=== PATIENT | female | born 1990 | race Caucasian/White ===

== ENCOUNTER 2020-07-31 17:18 | Inpatient (IN) ==
[2020-07-31] MEDS ORDERED: PENICILLIN G POTASSIUM 3 MU in DEXTROSE 5% 100 ML IV PRN (17:56)
[2020-07-31] MEDS ORDERED: MAG SULFATE BOLUS FROM BAG 4 GM IV ONE (18:03)
[2020-07-31] MEDS ORDERED: PENICILLIN G POTASSIUM 6 MU in DEXTROSE 5% 250 ML IV STA (18:05)
[2020-07-31] MEDS: LACTATED RINGER'S 1,000 ML IV PRN (18:11)
[2020-07-31] MEDS ORDERED: MAGNESIUM SULFATE / WTR 40 GM/1,000 ML BAG IV SCH (18:15)
[2020-07-31] MEDS ORDERED: BETAMETH SOD PHOS/ACETATE IA 6 MG/ML IM SCH (18:15)
[2020-07-31 18:18] LABS: Basophils # (auto) 0.02 K/uL (0-0.2); Basophils % (auto) 0.1 %; Eosinophils # (auto) 0.15 K/uL (0-0.5); Eosinophils % (auto) 0.9 %; Hematocrit (blood only) 32.7 % (37-47); Hemoglobin 11.1 g/dL (12.0-16.0); Immature Granulocytes # (auto) 0.23 K/uL (0.00-0.02); Immature Granulocytes % (auto) 1.4 %; Lymphocytes # (auto) 2.44 K/uL (1.2-3.4); Lymphocytes % (auto) 15.2 %; Mean Corpuscular Volume 88.4 fL (80-100); Monocytes # (auto) 1.62 K/uL (0.11-0.59); Monocytes % (auto) 10.1 %; Neutrophils # (auto) 11.58 K/uL (1.4-6.5); Neutrophils % (auto) 72.3 %; Platelet Count 262 K/uL (130-400); RDW Coefficient of Variation 13.8 % (11.5-14.5); White Blood Count 16.04 K/uL (4.8-10.8)
--- NOTE | 2020-07-31 18:28 | History & Physical Report ---
Date of Service July 31, 2020 Assessment & Plan (1) labor: Reviewed with patient that she is in labor and given gestational age, would recommend transfer to [facility]. Spoke with Dr. Scar Pradhan, [facility] who accepted the transfer. Betamethasone, penicillin, magnesium for neuro protection were initiated. Response benefits of transfer were discussed with patient she is amenable. History of Present Illness Chief Complaint: Pelvic pain, pressure Primary Care Provider: Zuleika Slaughter, DO 29 y/o at 24 5/7 wga w/ [facility] 11/15/20 by LMP 02/08 c/w 1st [facility] who presents w/ c/o pelvic pain that began after losing mucous plug earlier this afternoon. Pt was seen 3 days ago w/ c/o spotting with wiping, decreased FM and pressure. Was found to be stable for d/c home after exam. Today was resting, no longer having any spotting, but subsequently began having pelvic pain every 10 min after losing mucous plug and increased pressure and presented for evaluation. +FM; denies LOF. Noticed more pink tinge after losing mucous plug but no bleeding PNI: Di-di TIUP FGR baby B on [place] anatomy US, [facility] c/s noted AGA x 2 Hx PTD at 21 wks in 2009, subsequent full term deliveries GDM Hx HSIL Past [employer] Hx: G1 2009 at 21 wks, PTL, demise G2 2010 SAB G3 2011 at 38 wks G4 2015 at 37 wks G5 SAB G6 current Menarche 13 Periods irregular Last pap 03/2020 neg cotest, hx HSIL 2019 Denies hx STIs Allergies Allergy/AdvReac Type Severity Reaction Status Date / Time No Known Drug Allergies Allergy Unknown Verified 07/29/20 11:38 Home Medications Medication Instructions Recorded Confirmed Type prenat.vits,simi,sgi-jlrw-[id number] 1 tab PO DAILY 04/02/20 07/29/20 History acetone (urine) test #50 ea 07/01/20 07/29/20 Rx blood sugar diagnostic #150 ea 07/01/20 07/29/20 Rx blood-glucose meter #1 ea 07/01/20 07/29/20 Rx lancets 33 gauge #150 ea 07/01/20 07/29/20 Rx aspirin 81 mg PO DAILY 07/28/20 07/29/20 History Patient History Medical History (Updated 07/31/20 @ 19:41 by Tracie Padron MD) Depression H/O chlamydia infection History of oligohydramnios History of threatened premature labor Hx of high risk depression Surgical History No pertinent past surgical history Family History Grandmother (Maternal) Breast cancer Other Diabetes Family history non-contributory Thyroid disorder Denies family history of Ovarian cancer Colorectal cancer Social History Smoking Status: Never smoker Hx Alcohol Use: No Hx Substance Use: No Preferred Language: Croatian Beliefs That Will Affect Care: None marital status: Single marital status details: lindsay Sanchez (28) [phone] Current Living Situation: Family and Significant Other Current Living Situation Comment: lives with lindsay, 2 children, dog current occupational status: unemployed Other Information That Helps Us Care for You: No Feels Safe at Home: Yes Safety Concerns: Feels Safe At This Time Assistive Devices: None Physical Exam Constitutional: WD/WN, vitals as above Respiratory: normal respiratory effort; no respiratory distress and no labored breathing Psychiatric: A+Ox3, euthymic affect Genitourinary: normal external appearance SSE membranes visualized on exam, does appear to be ~3-4cm visualized Digital SVE ~3-4cm however is very thin BSUS cephalic (L)/transverse Head maternal L (R) Results & Data ([facility]) Vital Signs (Past 12 Hours) Vital Signs Temp Pulse Resp BP Pulse Ox 07/31/20 18:12 127 H 98 07/31/20 18:07 123 H 97 07/31/20 18:02 123 H 95 07/31/20 17:57 124 H 95 07/31/20 17:53 98.8 F 117 H 22 93 07/31/20 17:52 117 H 93 07/31/20 17:47 131 H 92 07/31/20 17:45 132 H 94 07/31/20 17:42 141 H 96 07/31/20 17:39 125 H 94 07/31/20 17:37 138 H 97 07/31/20 17:32 127 H 96 07/31/20 17:25 98.8 F 134 H 22 113/72 Laboratory Results OB Labs: Blood Type O Positive 04/09/20 Antibody Screen NEGATIVE 04/09/20 Hemoglobin 13.9 g/dL (12.0-16.0) 04/09/20 Hematocrit 40.4 % (37-47) 04/09/20 Mean Corpuscular Volume 86.9 fL (80-100) 04/09/20 Platelet Count 347 K/uL (130-400) 04/09/20 Rubella IgG Antibody Immune (Immune) 04/09/20 Rapid Plasma Reagin Nonreactive (Nonreactive) 04/09/20 Hepatitis B Surface Antigen Neg (Neg) 04/09/20 HIV (1&2) Ab and P24 Ag, 4th Gener Neg (Neg) 04/09/20 OB Optional Labs: Chlamydia trachomatis RNA NOT DETECTED (NOT DETECTED) 04/09/20 Neisseria gonorrhoeae RNA NOT DETECTED (NOT DETECTED) 04/09/20 cfDNA low risk Code Status & VTE Plan VTE Prophylaxis Plan VTE Prophylaxis will be ordered: Yes Coding Level of Care Code None Diagnoses labor O60.00
[2020-07-31 18:47] LABS: Mean Corpuscular Hgb Conc 33.9 g/dL (32-36)
[2020-07-31] MEDS ORDERED: OXYTOCIN 30 UNITS/500 ML BAG IV PRN (19:32)
[2020-07-31] MEDS ORDERED: LACTATED RINGER'S 1,000 ML IV PRN (19:32)
[2020-07-31] MEDS ORDERED: SODIUM CHLORIDE 0.9% 250 ML IV PRN (19:40)
[2020-07-31] MEDS ORDERED: AZITHROMYCIN 500 MG in DEXTROSE 5% 250 ML IV ONE (19:45)
[2020-07-31] MEDS ORDERED: CITRIC ACID/SODIUM CITRATE 15 ML UDC PO SCH (19:45)
--- NOTE | 2020-07-31 19:45 | Labor Progress Brief Note ---
Date of Service July 31, 2020 Subjective Pt notes ctx are worsening Assessment & Plan Admission and Anticipated Discharge Date Admission Date: July 31, 2020 Results & Data ([facility]) Vital Signs (Past 12 Hours) Vital Signs Temp Pulse Resp BP Pulse Ox 07/31/20 19:42 138 H 97 07/31/20 19:41 137 H 127/59 L 07/31/20 19:37 139 H 97 07/31/20 19:32 137 H 96 07/31/20 19:27 144 H 95 07/31/20 19:26 134 H 138/81 07/31/20 19:22 134 H 96 07/31/20 19:17 137 H 98 07/31/20 19:12 137 H 96 07/31/20 19:11 133 H 127/76 07/31/20 19:07 128 H 95 07/31/20 19:02 128 H 96 07/31/20 18:57 132 H 111/75 96 07/31/20 18:52 137 H 96 07/31/20 18:47 136 H 97 07/31/20 18:42 129 H 127/59 L 95 07/31/20 18:37 129 H 97 07/31/20 18:32 125 H 94 07/31/20 18:28 129 H 126/59 L 07/31/20 18:27 129 H 96 07/31/20 18:26 126 H 125/60 07/31/20 18:22 121 H 98 07/31/20 18:17 126 H 96 07/31/20 18:12 127 H 98 07/31/20 18:07 123 H 97 07/31/20 18:02 123 H 95 07/31/20 17:57 124 H 95 07/31/20 17:53 98.8 F 117 H 22 93 07/31/20 17:52 117 H 93 07/31/20 17:47 131 H 92 07/31/20 17:45 132 H 94 07/31/20 17:42 141 H 96 07/31/20 17:39 125 H 94 07/31/20 17:37 138 H 97 07/31/20 17:32 127 H 96 07/31/20 17:25 98.8 F 134 H 22 113/72 Coding
--- NOTE | 2020-07-31 19:48 | Labor Progress Brief Note ---
Date of Service July 31, 2020 Subjective This is delayed entry due to pt care. Pt noting worsening ctx intensity and frequency Assessment & Plan (1) labor: Given progression and exam, discussed patient is now unstable for transfer due to concern for delivery in the ambulance on route. Reviewed options for anticipated impending delivery as head of baby A became much more palpable and had descended even further into the vagina, in the setting of malpresentation of baby B. Offered attempting vaginal delivery for baby A and awaiting to see if baby B would become cephalic, however discussed that if baby B became breech that a would be necessary as I would not recommend a breech vaginal delivery at 24 weeks in the setting of questionable growth restriction for baby B as well. Also offered the optionto proceed with elective section for both babies. Reviewed risks versus benefits of each, including increased risk of bleeding with after a vaginal delivery if she were to opt for that. Did also discuss the high likelihood of a classical incision if the was performed given gestational age this would necessitate a late /early term indicated repeat as she would not be a candidate for a moving forward. After extensive discussion, patient elected to move forward with primary for both babies. Risks for surgery including infection, bleeding, injury to adjacent structures (bowel, bladder, ureters, blood vessels, nerves), possible need for life-saving blood transfusion and/or hysterectomy were reviewed. Consent was extensively reviewed and subsequently signed with the patient. Anesthesia and pediatricians made aware, [facility] made aware. Magnesium and BMZ already initiated as well as PCN for GBS unk status. GC/CT, GBS cultures obtained. Stone Sandblaster consult requested by patient. Peds also working on having [facility] NICU team to come to be present at delivery or shortly thereafter. Ample time was given to the patient and her for questions, answered to their apparent satisfaction. Admission and Anticipated Discharge Date Admission Date: July 31, 2020 Physical Exam Constitutional: WD/WN, vitals as above Respiratory: normal respiratory effort; no respiratory distress and no labored breathing Psychiatric: A+Ox3, euthymic affect Genitourinary: Manual OB Exam: + cervical dilation (8-9cm), + cervical effacement 100% and + station 0 head palpable and lower station A 150/min-mod/+accel/-decel B 155/min-mod/+accel/-decel [place] q3-5min EFM reassuring for GA x 2 Results & Data ([facility]) Vital Signs (Past 12 Hours) Vital Signs Temp Pulse Resp BP Pulse Ox 07/31/20 19:42 138 H 97 07/31/20 19:41 137 H 127/59 L 07/31/20 19:37 139 H 97 07/31/20 19:32 137 H 96 07/31/20 19:27 144 H 95 07/31/20 19:26 134 H 138/81 07/31/20 19:22 134 H 96 07/31/20 19:17 137 H 98 07/31/20 19:12 137 H 96 07/31/20 19:11 133 H 127/76 07/31/20 19:07 128 H 95 07/31/20 19:02 128 H 96 07/31/20 18:57 132 H 111/75 96 07/31/20 18:52 137 H 96 07/31/20 18:47 136 H 97 07/31/20 18:42 129 H 127/59 L 95 07/31/20 18:37 129 H 97 07/31/20 18:32 125 H 94 07/31/20 18:28 129 H 126/59 L 07/31/20 18:27 129 H 96 07/31/20 18:26 126 H 125/60 07/31/20 18:22 121 H 98 07/31/20 18:17 126 H 96 07/31/20 18:12 127 H 98 07/31/20 18:07 123 H 97 07/31/20 18:02 123 H 95 07/31/20 17:57 124 H 95 07/31/20 17:53 98.8 F 117 H 22 93 07/31/20 17:52 117 H 93 07/31/20 17:47 131 H 92 07/31/20 17:45 132 H 94 07/31/20 17:42 141 H 96 07/31/20 17:39 125 H 94 07/31/20 17:37 138 H 97 07/31/20 17:32 127 H 96 07/31/20 17:25 98.8 F 134 H 22 113/72 Coding Level of Care Code None Diagnoses labor O60.00
[2020-07-31] MEDS ORDERED: MoRPHine SULFATE PF 1 MG/ML 10 ML AMP/VIAL ONE (19:49)
[2020-07-31] MEDS ORDERED: ceFAZolin 3,000 MG in DEXTROSE 5% 50 ML IV SCH (20:00)
[2020-07-31] MEDS ORDERED: PHENYLEPHRINE 100MCG/ML 5ML SYR ONE (20:35)
[2020-07-31] MEDS ORDERED: OXYTOCIN 10 UNITS/ML VIAL ONE (20:35)
[2020-07-31] MEDS ORDERED: METOCLOPRAMIDE HCL INJ 5 MG/ML 2 ML VIAL ONE (20:35)
[2020-07-31] MEDS ORDERED: ONDANSETRON INJ 2 MG/ML 2 ML VIAL ONE (20:35)
[2020-07-31] MEDS ORDERED: MIDAZOLAM HCL 1 MG/ML 2ML VIAL ONE (20:36)
[2020-07-31] MEDS ORDERED: KETAMINE 50 MG/5 ML SYRINGE ONE (20:43)
--- NOTE | 2020-07-31 20:47 | Anesthesiology Consultation ---
Date of Service July 31, 2020 Assessment & Plan (1) Encounter for pre-operative examination: Chart Review Chart Review: Acceptable Risk for Surgery (Emergent) History Surgery Operation Date: 07/31/20 07:30 Proposed Procedures p Section in LD - Tracie Padron MD Height/Weight Height: 5 ft 2 in Weight: 96.254 kg Allergies Allergy/AdvReac Type Severity Reaction Status Date / Time No Known Drug Allergies Allergy Unknown Verified 07/29/20 11:38 Medications Home Medications Medication Instructions Recorded Confirmed Last Taken prenat.vits,simi,zvy-quqn-ikwly 1 tab PO DAILY 04/02/20 07/29/20 07/28/20 07:00 acetone (urine) test #50 ea 07/01/20 07/29/20 Unknown blood sugar diagnostic #150 ea 07/01/20 07/29/20 Unknown blood-glucose meter #1 ea 07/01/20 07/29/20 Unknown lancets 33 gauge #150 ea 07/01/20 07/29/20 Unknown aspirin 81 mg PO DAILY 07/28/20 07/29/20 07/28/20 07:00 Active Medications Generic Name Dose Route Start Last Admin Trade Name Freq PRN Reason Stop Dose Admin Lactated Ringer's 1,000 mls @ 125 mls/hr 07/31/20 17:52 07/31/20 18:11 Lr IV 08/30/20 17:51 999 mls/hr .Q8H PRN Administration L&D Protocol Protocol Magnesium Sulfate 40 gm in 1,000 mls @ 50 mls/hr 07/31/20 18:15 07/31/20 18:35 Magnesium Sulfate / Wtr IV 08/30/20 18:14 50 mls/hr .Q20H THERON Administration Azithromycin 500 mg/ Dextrose 255 mls @ 127.5 mls/hr 07/31/20 19:45 07/31/20 19:44 IV 07/31/20 21:44 127.5 mls/hr TODAY@1945 ONE Administration NPO Last Intake of Fluids Comment: Sips Date Last Intake of Solids: 07/31/20 Time Last Intake of Solids: 12:00 Past Medical History Medical History (Updated 07/31/20 @ 20:46 by Tyler Jernigan MD) Depression H/O chlamydia infection History of oligohydramnios History of threatened premature labor Hx of high risk depression Past Family History Family History Grandmother (Maternal) Breast cancer Other Diabetes Family history non-contributory Thyroid disorder Denies family history of Ovarian cancer Colorectal cancer Past Surgical History Surgical History No pertinent past surgical history Social History Smoking Status: Never smoker Hx Alcohol Use: No Hx Substance Use: No Physical Exam Vital Signs Last Vital Signs Temp 37.1 C 07/31/20 17:53 Pulse 138 H 07/31/20 19:42 Resp 22 07/31/20 17:53 BP 127/59 L 07/31/20 19:41 Pulse Ox 97 07/31/20 19:42 Testing Laboratory Results 07/31/20 18:05 Blood Type O Positive 07/31/20 18:05 Antibody Screen NEGATIVE 07/31/20 18:05
[2020-07-31] MEDS ORDERED: NALOXONE HCL 1 MG in SODIUM CHLORIDE 0.9% 1000ML 1,000 ML IV PRN (20:58)
[2020-07-31] MEDS ORDERED: LACTATED RINGER'S 500 ML IV PRN (20:58)
[2020-07-31] MEDS ORDERED: MEPERIDINE HCL 25 MG/ML CARP/VIAL IV PRN (20:58)
[2020-07-31] MEDS ORDERED: NALOXONE HCL 0.4 MG/1 ML VIAL/CARP IV PRN (20:58)
[2020-07-31] MEDS ORDERED: MoRPHine SULFATE PF 1 MG/ML 10 ML AMP/VIAL INT SPINAL ONE (20:58)
[2020-07-31] MEDS ORDERED: PROMETHAZINE HCL 12.5 MG in SODIUM CHLORIDE 0.9% 50 ML IV PRN (20:58)
[2020-07-31] MEDS ORDERED: ONDANSETRON INJ 2 MG/ML 2 ML VIAL IV PRN (20:58)
[2020-07-31] MEDS ORDERED: NALOXONE HCL 0.08 MG in SYRINGE 1.8 ML IV PRN (20:58)
[2020-07-31] MEDS ORDERED: ePHEDrine sulfate 50 MG/ML AMP IV PRN (20:58)
[2020-07-31] MEDS ORDERED: diphenhydrAMINE 50 MG/ML VIAL IV PRN (20:58)
[2020-07-31] MEDS ORDERED: NO NARCOTICS OR SEDATIVES SCH (21:00)
[2020-07-31] MEDS ORDERED: SODIUM CHLORIDE 0.9% 1000ML 1,000 ML IV SCH (21:00)
[2020-07-31] MEDS: KETOROLAC 30 MG/ML VIAL IV PRN (21:25)
--- NOTE | 2020-07-31 21:27 | Anesthesiology Progress Note ---
Date of Service July 31, 2020 Anesthesia Post Procedure Vital Signs Vital Signs: Temp Pulse Resp BP Pulse Ox 07/31/20 21:20 106 H 110/57 L 91 07/31/20 21:19 106 H 95 07/31/20 19:42 138 H 97 07/31/20 19:41 137 H 127/59 L 07/31/20 19:37 139 H 97 07/31/20 19:32 137 H 96 07/31/20 19:27 144 H 95 07/31/20 19:26 134 H 138/81 07/31/20 19:22 134 H 96 07/31/20 19:17 137 H 98 07/31/20 19:12 137 H 96 07/31/20 19:11 133 H 127/76 07/31/20 19:07 128 H 95 07/31/20 19:02 128 H 96 07/31/20 18:57 132 H 111/75 96 07/31/20 18:52 137 H 96 07/31/20 18:47 136 H 97 07/31/20 18:42 129 H 127/59 L 95 07/31/20 18:37 129 H 97 07/31/20 18:32 125 H 94 07/31/20 18:28 129 H 126/59 L 07/31/20 18:27 129 H 96 07/31/20 18:26 126 H 125/60 07/31/20 18:22 121 H 98 07/31/20 18:17 126 H 96 07/31/20 18:12 127 H 98 07/31/20 18:07 123 H 97 07/31/20 18:02 123 H 95 07/31/20 17:57 124 H 95 07/31/20 17:53 37.1 C 117 H 22 93 07/31/20 17:52 117 H 93 07/31/20 17:47 131 H 92 07/31/20 17:45 132 H 94 07/31/20 17:42 141 H 96 07/31/20 17:39 125 H 94 07/31/20 17:37 138 H 97 07/31/20 17:32 127 H 96 07/31/20 17:25 37.1 C 134 H 22 113/72 Transfer of Care Handoff Completed per policy Notes Mental Status: alert / awake / arousable Patient Amnestic to Procedure: Yes Nausea / Vomiting: adequately controlled Pain: adequately controlled and improving with treatment Airway Patency, RR, SpO2: stable & adequate BP & HR: stable & adequate Hydration State: stable & adequate Neuraxial Anesthesia: was administered and sensory block is resolving Anesthetic Complications: no major complications apparent and Pt Satisfied with anesthetic care Notes: The patient is able to move her legs and her vital signs are stable.
--- NOTE | 2020-07-31 21:59 | Post Operative Brief Note ---
PG Immediate Post Op with CF Date of Surgery July 31, 2020 Pre & Post Diagnosis Operation Date: 07/31/20 07:30 <No data on this case meets the specified criteria> I identified the patient and participated in the time-out.: Yes Procedure Operation Date: 07/31/20 07:30 Primary Classical Section Surgeon Tracie Padron MD Air Surveillance Operator Rylee Estimated Blood Loss 800 Findings Consistent with Post-Op Diagnosis Fluids 2600cc crystalloid Specimens Specimen Description: Placenta, cord gases, cord blood Drains Bose Catheter Anesthesia Type Spinal Complications none Disposition Accompanied Patient To Recovery: Yes Disposition: L&D
--- NOTE | 2020-07-31 22:31 | Post Operative Brief Note ---
PG Immediate Post Op with CF Date of Surgery July 31, 2020 Pre & Post Diagnosis Operation Date: 07/31/20 19:40 Pre-Op Diagnosis: 1.) Dichorionic diamniotic twin intrauterine at 24 5/7 gestation 2.) labor 3.) Possible growth restriction of baby B 4.) GDM 5.) Malpresentation of baby B 6.) Hx of delivery Post-Op Diagnosis: Same as Pre Op s/p delivery I identified the patient and participated in the time-out.: Yes Procedure Operation Date: 07/31/20 19:40 Classical section Surgeon Tracie Padron MD Resource Room Teacher Rylee Estimated Blood Loss 800 Findings Consistent with Post-Op Diagnosis Normal appearing uterus, bilateral fallopian tubes and ovaries. Baby A apgars 1,6,8 at 1,5, and 10min respectively; baby B apgars 1 and 7 at 1 and 5 minutes respectively. Melonie applied to the hysterotomy at conclusion of procedure. Fluids 2600cc crystalloid Specimens Specimen Description: 1.) Cord Blood Baby A 2.) Cord Blood Baby B 3.) Cord Gases Baby A 4.) Cord Gases Baby B 5.) Placenta - Exam Drains Bose Catheter (draining clear urine) Anesthesia Type Spinal Complications none Disposition Accompanied Patient To Recovery: Yes Disposition: L&D
--- NOTE | 2020-07-31 23:04 | Operative Report ---
PG Post Operative Report Pre & Post Diagnosis Operation Date: 07/31/20 19:40 Pre-Op Diagnosis: 1.) Dichoronic diamniotic twin intrauterine at 24 5/7 gestation 2.) labor 3.) Possible growth restriction of baby B 4.) GDM 5.) Malpresentation of baby B 6.) Hx of delivery Post-Op Diagnosis: Same as Pre Op Delivered I identified the patient and participated in the time-out.: Yes Procedure Operation Date: 07/31/20 19:40 Primary classical section Surgeon Tracie Padrno MD Motion Picture Narrator Tameka Mckee, Estimated Blood Loss 800 Findings Consistent with Post-Op Diagnosis Normal appearing uterus, bilateral fallopian tubes and ovaries. Baby A apgars 1,6,8 at 1,5, and 10 min respectively; baby B apgars 1 and 7 at 1 and 5 minutes respectively. Melonie applied to the hysterotomy at conclusion of procedure. Fluids 2600cc crystalloid Specimens 1.) Cord Blood Baby A 2.) Cord Blood Baby B 3.) Cord Gases Baby A 4.) Cord Gases Baby B 5.) Placenta - Exam Drains Bose draining clear urine Anesthesia Type Spinal Complications none Disposition Accompanied Patient To Recovery: Yes Disposition: L&D Indications Ayala is a 29-year-old -1-2-2 at 24-5/7 weeks gestational age with an EDC of 11/15/2020 by LMP consistent with first trimester ultrasound who presented earlier today with complaints of pelvic pain every 10 minutes and increasing pressure after losing her mucous plug earlier today. On arrival she endorsed movement, denied any leaking of fluid. Following the loss of mucous plug, she did note a pink tinge when she wiped but no rob bleeding. This has been complicated by a history of delivery, questionable growth res triction of baby B, and gestational diabetes. She was found to have growth restriction of baby b at the anatomy scan here in the 6th percentile, however subsequent M ultrasound found both babies to be AGA. Repeat ultrasound at [facility] 2 days ago again showed baby B in the 9th percentile while baby A was in the 14th percentile, both estimated >500g. On exam on arrival, patient was found to be 3 to 4 cm on speculum exam confirmed by sterile vaginal exam. Baby A was noted to be cephalic, baby B was transverse head maternal left. She was counseled regarding transfer to a tertiary care center given her gestational age and labor, and she was amenable so [facility] was contacted and arrangements made for transfer. Betamethasone was administered to assist in lung maturity, magnesium was started for neuro prophylaxis, and penicillin was initiated for GBS unknown status. Cultures were obtained. Patient was rechecked prior to planned arrival of ambulance for transfer, was subsequently found to be 8 to 9 cm with descent of the head into the vagina. Given these findings, patient was deemed unstable for transfer due to impending delivery and recommendation was for delivery here. Pediatrics and anesthesia teams were made aware, [facility] NICU team was contacted for assistance in stabilization of the babies. She was counseled extensively regarding route of delivery, specifically given malpresentation of baby B in the setting of prematurity. After discussion, pt ultimately opted for primary section of both babies. She was also counseled regarding possible need for classical incision which would necessitate late /early term repeat delivery for future pregnancies. Consent was extensively reviewed and then signed. Description of Procedure The patient was taken to the operating room after consents were ensured. The patient was properly identified. Spinal anesthesia was obtained without difficulty. The patient was placed in a dorsal supine position with left lateral tilt, then prepped and draped in normal sterile fashion. Surgical time out was performed. Antibiotics were given for prophylaxis. Anesthesia was tested to ensure adequate surgical levels. Pfannenstiel skin incision was performed and carried down to the underlying fascia with a knife. The fascia was then nicked in the midline and extended laterally with pickups and Peace scissors. Superior portion of the fascia was grasped with Kochers x2 and elevated off the underlying rectus muscles using blunt dissection. Inferior portion of the fascia was then grasped with Thanh clamps x2 and also elevated off the underlying muscles with blunt dissection. Midline was identified. The peritoneum was then entered and extended to provide adequate room for delivery of baby. A hand was inserted into the abdomen, uterus was noted to be clear of adhesions. Bladder blade was inserted, bladder flap was created in the usual fashion. A superior to inferior classical uterine incision was made in the uterus and extended with bandage scissors in a superior to inferior fashion. Amniotomy for baby B was made with clear fluid at the time of rupture. foot was able to be grasped but other foot could not be easily identified. breech was attempted to be grasped as well however could not be easily delivered to the hysterotomy atraumatically. As such, decision was made to attempt delivery of baby A in order to provide more room for delivery of baby B. head of baby A was then identified, grasped and elevated to the level of the hysterotomy atraumatically. Fundal pressure was applied and head delivered easily. Remainder of the body delivered without incident. Nose and mouth were bulb suctioned on the surgical field. Delayed cord clamping was performed for 30 seconds per pediatrics team. The cord was double clamped and cut, baby was handed off to awaiting pediatrics staff. Both feet of baby B were then able to identified and atraumatically delivered through the hysterotomy. Remainder of body was delivered to the level of the scapula at which point moist blue towel was wrapped around the torso. head of baby B was able to be spontaneously delivered in the breech position with gentle fundal pressure. As baby B was not as vigorous, decision was made by pediatrics to defer delayed cord clamping. Cord was double clamped and cut and baby was handed off to awaiting pediatrics team. Cord segment and blood were obtained from each cord. Placenta was then expressed from the uterus. The uterus was exteriorized. Several passes were made inside the uterus to remove the remaining membranes. Attention was then turned to the hysterotomy, which was then closed in a 3 layer closure with a running locked suture of 0 Vicryl on a CTX needle and then CT-1 needle. A baseball stitch was used to close the third layer using 3-0 Vicryl. There was noted to be good hemostasis. The posterior cul-de-sac was then inspected and cleaned of clot and debris. The hysterotomy was again inspected and noted to be hemostatic. The uterus was returned to the abdomen. The right and left pericolic gutters were cleaned of all clot and debris. The hysterotomy was again noted to be hemostatic. Space of Retzius was noted to be hemostatic. Melonie was applied to the hysterotomy. The fascia was then closed with a running suture of 0 Vicryl on a CT1 needle. Subcutaneous tissue was copiously irrigated and noted to be hemostatic. Subcutaneous tissue was re-approximated using 2-0 plain gut. The skin was then closed with a running suture of 3-0 Monocryl in a subcuticular fashion. At termination of the procedure, the fundal pressure was applied and a moderate amount of lochia was expressed. Pressure dressing was applied to the patient. She tolerated the procedure well. All sponge, needle, instrument counts were correct x 2. I attest to the content of the Intraoperative Record and any orders documented therein. Any exceptions are noted below. OB Procedure charges OB Charges 38143 C/S
[2020-07-31 23:23] LABS: Appearance Urine Clear (Clear); Bacteria Urine Automated 1+ (Negative); Bilirubin Urine Negative (Negative); Blood Urine 3+ (Negative); Color Urine Yellow; Epithelial Cell Urine Auto >30 /lpf (0-5); Glucose Urine UA Trace (Negative); Ketones Urine Negative (Negative); Leukocyte Esterase Urine 1+ (Negative); Nitrite Urine Negative (Negative); Protein Urine Negative (Negative); Specific Gravity Urine 1.015 (1.000-1.030); Urobilinogen Urine Negative (Negative); pH Urine 6.5 (4.5-7.5)
[2020-08-01] MEDS ORDERED: DIPHTHERIA/TETANUS/PERTUSSIS 0.5 ML SYR/VIAL IM ONE (00:18)
[2020-08-01] MEDS ORDERED: IBUPROFEN 600 MG TAB PO PRN (00:18)
[2020-08-01] MEDS ORDERED: LACTATED RINGER'S 1,000 ML IV SCH (00:18)
[2020-08-01] MEDS ORDERED: SENNA 8.6 MG TAB PO PRN (00:18)
[2020-08-01] MEDS ORDERED: HYDROCORTISONE ACETATE 25 MG SUPP PR PRN (00:18)
[2020-08-01] MEDS ORDERED: SUPERCREAM 0.870% 15 GM JAR EXT PRN (00:18)
[2020-08-01] MEDS ORDERED: MAGNESIUM HYDROXIDE SUSP 30 ML UDC PO PRN (00:18)
[2020-08-01] MEDS ORDERED: BENZOCAINE 20% AER SPR 82.5 GM CAN EXT PRN (00:18)
[2020-08-01] MEDS: LACTATED RINGER'S 1,000 ML IV PRN ×2 (00:30→09:56)
[2020-08-01] MEDS: KETOROLAC 30 MG/ML VIAL IV PRN ×2 (05:39→12:22)
--- NOTE | 2020-08-01 06:08 | Obstetrical Progress Note ---
Date of Service <Jl Trimble MD - Last Filed: 08/01/20 07:21> August 01, 2020 Assessment & Plan <Jl Trimble MD - Last Filed: 08/01/20 07:21> (1) state: 29 y/o s/p classical c section at 24w5d for di/di twins labor. GDM. O pos. Rubella immune. - cameron out later today. will ambulate - Hb 11.1->10.7. no symptom complaints. - wbc 16.04->22.93. follow clinically - check incision later today - will order abd binder - continue routine care (2) Gestational diabetes mellitus (GDM) affecting , antepartum: - not on medications Subjective <Jl Trimble MD - Last Filed: 08/01/20 07:21> Passing Gas:: Yes (x1) Diet Tolerance:: regular diet Lochia:: Small Feeding Type:: breast feeding (pumping) Current Pain Level(1-10): 2 (2 currently. 7 at worst overnight. meds are helping) Has not yet ambulated. Cameron in place. Pain controlled. Review of Systems Denies fever, chills, sweats Denies shortness of breath, chest pain, palpitations. Denies breast pain. Denies dysuria. Denies headache or changes in vision. Denies nausea/vomiting. Denies numbness, tingling, weakness. Denies mood problems No calf pain Physical Exam <Jl Trimble MD - Last Filed: 08/01/20 07:21> General: Alert, oriented. No acute distress. Cardiac: Regular rate and rhythm, no murmurs/rubs/gallops. Respiratory: Clear to auscultation bilaterally, no wheezes/rales/rhonchi. No respiratory distress. Abdomen: , soft, nontender. Uterus: Uterine fundus firm, palpable 2cm below umbilicus. Lower Extremities: No lower extremity edema or swelling. No deep calf pain. Caitlin's negative bilaterally. Results & Data ([facility]) <Jl Trimble MD - Last Filed: 08/01/20 07:21> Vital Signs (Past 12 Hours) Vital Signs Temp Pulse Pulse Resp BP BP Pulse Ox 08/01/20 05:48 18 98 08/01/20 04:55 36.5 C 103 H 18 100/65 99 08/01/20 03:24 18 98 08/01/20 02:30 18 98 08/01/20 01:47 36.9 C 86 18 105/65 99 08/01/20 01:20 18 08/01/20 00:55 99 H 97 08/01/20 00:50 103 H 96 08/01/20 00:49 93 H 96/50 L 08/01/20 00:45 88 95 08/01/20 00:40 88 96 08/01/20 00:39 92 H 105/54 L 08/01/20 00:35 100 H 96 08/01/20 00:30 102 H 96 08/01/20 00:29 93 H 111/60 08/01/20 00:25 90 97 08/01/20 00:20 101 H 18 96 08/01/20 00:19 107 H 113/51 L 08/01/20 00:15 118 H 96 08/01/20 00:10 110 H 107/52 L 96 08/01/20 00:05 98 H 96 08/01/20 00:00 99 H 97 07/31/20 23:54 108 H 96 07/31/20 23:49 98 H 98/54 L 95 07/31/20 23:48 97 H 88 L 07/31/20 23:44 94 H 95 07/31/20 23:39 98 H 105/58 L 96 07/31/20 23:34 109 H 96 07/31/20 23:29 104 H 102/53 L 96 07/31/20 23:24 103 H 96 07/31/20 23:20 18 07/31/20 23:19 101 H 112/55 L 94 07/31/20 23:14 106 H 97 07/31/20 23:09 106 H 108/56 L 96 07/31/20 23:04 106 H 96 07/31/20 22:59 107 H 100/60 95 07/31/20 22:54 106 H 94 07/31/20 22:50 18 07/31/20 22:49 104 H 104/59 L 95 07/31/20 22:44 102 H 95 07/31/20 22:39 102 H 107/61 97 07/31/20 22:34 100 H 96 07/31/20 22:29 110 H 113/56 L 95 07/31/20 22:24 109 H 95 07/31/20 22:20 18 07/31/20 22:19 107 H 109/58 L 95 07/31/20 22:14 105 H 95 07/31/20 22:10 18 07/31/20 22:09 110 H 111/59 L 95 07/31/20 22:04 104 H 94 07/31/20 22:00 18 07/31/20 21:59 108 H 112/61 94 07/31/20 21:54 110 H 92 07/31/20 21:50 18 07/31/20 21:49 108 H 106/60 92 07/31/20 21:45 105 H 94 07/31/20 21:44 106 H 95 07/31/20 21:40 107 H 18 94 07/31/20 21:39 105 H 96/51 L 95 07/31/20 21:34 104 H 97 07/31/20 21:29 108 H 107/56 L 95 07/31/20 21:24 106 H 97 07/31/20 21:20 106 H 18 110/57 L 91 07/31/20 21:19 37.0 C 106 H 18 95 07/31/20 19:42 138 H 97 07/31/20 19:41 137 H 127/59 L 07/31/20 19:37 139 H 97 07/31/20 19:32 137 H 96 07/31/20 19:27 144 H 95 07/31/20 19:26 134 H 138/81 07/31/20 19:22 134 H 96 07/31/20 19:17 137 H 98 07/31/20 19:12 137 H 96 07/31/20 19:11 133 H 127/76 07/31/20 19:07 128 H 95 07/31/20 19:02 128 H 96 07/31/20 18:57 132 H 111/75 96 07/31/20 18:52 137 H 96 07/31/20 18:47 136 H 97 07/31/20 18:42 129 H 127/59 L 95 07/31/20 18:37 129 H 97 07/31/20 18:32 125 H 94 07/31/20 18:28 129 H 126/59 L 07/31/20 18:27 129 H 96 07/31/20 18:26 126 H 125/60 07/31/20 18:22 121 H 98 07/31/20 18:17 126 H 96 07/31/20 18:12 127 H 98 Medications Administered <Tracie Padron MD - Last Filed: 08/01/20 08:46> Co-Signing Physician Notes Resident Physician Supervision Note: I interviewed and examined the patient. Discussed with Dr. Trimble and agree with findings and plan as documented in the note. Any exceptions or clarifications are listed here: POD1 from classical CS 2/2 advanced PTL and malpresentation of baby B. Following routine pp care, mood appropriate given events. VSS. Exam benign, dressing c/d/i, for removal later today in the shower. H/H stable this AM. Continue routine care, reports babies are doing a little better than anticipated but NICU is continuing to update her Documented By: Tracie Padron MD
[2020-08-01 06:30] LABS: Basophils # (auto) 0.01 K/uL (0-0.2); Hematocrit (blood only) 31.6 % (37-47); Hemoglobin 10.7 g/dL (12.0-16.0); Immature Granulocytes # (auto) 0.15 K/uL (0.00-0.02); Immature Granulocytes % (auto) 0.7 %; Lymphocytes % (auto) 8.7 %; Mean Corpuscular Hemoglobin 30.4 pg (25-34); Mean Corpuscular Hgb Conc 33.9 g/dL (32-36); Mean Corpuscular Volume 89.8 fL (80-100); Mean Platelet Volume 10.2 fL (7.4-10.4); Monocytes # (auto) 1.78 K/uL (0.11-0.59); Monocytes % (auto) 7.8 %; Neutrophils # (auto) 18.99 K/uL (1.4-6.5); Neutrophils % (auto) 82.8 %; Platelet Count 299 K/uL (130-400); RDW Coefficient of Variation 13.9 % (11.5-14.5); RDW Standard Deviation 45.2 fL (36.4-46.3); Red Blood Count 3.52 M/uL (4.2-5.4); White Blood Count 22.93 K/uL (4.8-10.8)
[2020-08-01] MEDS ORDERED: FERROUS SULFATE 325 MG TAB PO SCH (08:00)
[2020-08-01] MEDS: DOCUSATE SODIUM 100 MG CAP PO SCH ×2 (08:00→20:09)
[2020-08-01] MEDS: SIMETHICONE 80 MG CHEW PO SCH ×4 (08:00→20:09)
[2020-08-01] MEDS ORDERED: PRENATAL VITAMIN 1 TAB PO SCH (08:00)
[2020-08-01] MEDS ORDERED: DC INTRASPINAL MORPHINE ONE (14:58)
[2020-08-01] MEDS ORDERED: diphenhydrAMINE 50 MG/ML VIAL IV PRN (14:58)
[2020-08-01] MEDS ORDERED: KETOROLAC 30 MG/ML VIAL IV PRN (14:58)
[2020-08-01] MEDS ORDERED: PROMETHAZINE HCL 25 MG in SODIUM CHLORIDE 0.9% 50 ML IV PRN (14:58)
[2020-08-01] MEDS ORDERED: ONDANSETRON INJ 2 MG/ML 2 ML VIAL IV PRN (14:58)
[2020-08-01] MEDS ORDERED: diphenhydrAMINE Capsule 25 MG CAP PO PRN (14:58)
--- NOTE | 2020-08-01 16:36 | Obstetrical Progress Note ---
Date of Service August 01, 2020 Assessment & Plan Admission and Anticipated Discharge Date Admission Date: July 31, 2020 Subjective I rec'd phone call from NICU at [facility]. Baby A is stable. Baby B, however, is not doing well. NICU is recommending that patient be transferred to [facility] so she can be at Baby B's bedside if she does not survive. I discussed with patient and FOB - they are tearful after their call with NICU. They do want to be transferred to [facility]. I think this is a good idea, as patient is not yet stable postop for discharge. She just had cameron removed, we are waiting for her to void on her own, and she has not yet ambulated. Small golf-ball sized clot, no further bleeding. Hgb has been stable since last night, vitals stable. I called [facility] Transfer center, and Dr Ellsworth (OB attending) is agreeable for transfer for the remainder of her care. Transfer consent reviewed with patient. Discussed potential for traffic, accident, weather concerns during transport. She'd like to be transferred to [place]. Results & Data ([facility]) Vital Signs (Past 12 Hours) Vital Signs Temp Pulse Resp BP Pulse Ox 08/01/20 15:30 37.3 C 101 H 20 107/62 98 08/01/20 14:00 16 95 08/01/20 13:15 16 96 08/01/20 13:10 16 94 08/01/20 12:15 37.3 C 101 H 18 103/53 L 95 08/01/20 12:00 18 95 08/01/20 10:10 18 98 08/01/20 09:05 16 96 08/01/20 08:00 18 96 08/01/20 07:09 37.4 C 95 H 18 101/62 95 08/01/20 07:00 16 94 08/01/20 06:30 18 94 08/01/20 05:48 18 98 08/01/20 04:55 36.5 C 103 H 18 100/65 99 PG Care Time/CCT Total # of Minutes Spent Total Time Spent with Patient: Total time spent is greater than 50% in coordination of care (as documented) at patient's floor/unit and/or counseling patient: Coding Level of Care Code None
[2020-08-01] MEDS: oxyCODONE/ACETAMINOPHEN 5mg/325mg TAB PO PRN ×2 (17:01→20:09)
[2020-08-01] MEDS ORDERED: BETAMETH SOD PHOS/ACETATE IA 6 MG/ML IM SCH (18:00)
[2020-08-01] MEDS ORDERED: bisacodyL 5 MG TABEC PO SCH (20:00)
[2020-08-02 13:31] LABS: Chlamydia Trach RNA NOT DETECTED (NOT DETECTED); GC (Neis gonorrhoeae) RNA NOT DETECTED (NOT DETECTED)
[2020-08-02] MEDS ORDERED: bisacodyL 10 MG SUPP PR PRN (21:51)
--- NOTE | 2020-08-04 08:35 | Discharge Summary ---
Date of Service August 04, 2020 Admission HPI Per Admitting Provider 29 y/o at 24 5/7 wga w/ [facility]UY 11/15/20 by LMP 02/08 c/w 1st tri US who presents w/ c/o pelvic pain that began after losing mucous plug earlier this afternoon. Pt was seen 3 days ago w/ c/o spotting with wiping, decreased FM and pressure. Was found to be stable for d/c home after exam. Today was resting, no longer having any spotting, but subsequently began having pelvic pain every 10 min after losing mucous plug and increased pressure and presented for evaluation. +FM; denies LOF. Noticed more pink tinge after losing mucous plug but no bleeding PNI: Di-di TIUP FGR baby B on [place] anatomy US, MFM c/s noted AGA x 2 Hx PTD at 21 wks in 2009, subsequent full term deliveries GDM Hx HSIL Past [employer] Hx: G1 2009 at 21 wks, PTL, demise G2 2010 SAB G3 2011 at 38 wks G4 2015 at 37 wks G5 SAB G6 current Menarche 15 Periods irregular Last pap 03/2020 neg cotest, hx HSIL 2019 Denies hx STIs Admission Exam (Per Admitting) Constitutional WD/WN, vitals as above Respiratory normal respiratory effort; no respiratory distress and no labored breathing Psychiatric A+Ox3, euthymic affect Genitourinary normal external appearance SSE membranes visualized on exam, does appear to be ~3-4cm visualized Digital SVE ~3-4cm however is very thin BSUS cephalic (L)/transverse Head maternal L (R) Cat 1 tracing, reassuring for GA x 2 [place] difficult to trace, reporting q10min ctx Discharge Data Consultations 07/31/20 19:29 Consult Anesthesiology Stat 07/31/20 19:33 Consult Anesthesiology Stat Procedures Performed Operation Date: 07/31/20 19:40 Actual Procedures p Primary classical Section for twin delivery baby A born at 2014 and baby B born at 2017. - Tracie Padron MD Hospital Course (1) labor: On exam on arrival, patient was found to be 3 to 4 cm on speculum exam confirmed by sterile vaginal exam. Baby A was noted to be cephalic, baby B was transverse head maternal left. She was counseled regarding transfer to a tertiary care center given her gestational age and labor, and she was amenable so [facility] was contacted and arrangements made for transfer. Betamethasone was administered to assist in lung maturity, magnesium was started for neuro prophylaxis, and penicillin was initiated for GBS unknown status. Cultures were obtained. Patient was rechecked prior to planned arrival of ambulance for transfer, was subsequently found to be 8 to 9 cm with descent of the head into the vagina. Given these findings, patient was deemed unstable for transfer due to impending delivery and recommendation was for delivery here. Pediatrics and anesthesia teams were made aware, [facility] NICU team was contacted for assistance in stabilization of the babies. She was counseled extensively regarding route of delivery, specifically given malpresentation of baby B in the setting of prematurity. After discussion, pt ultimately opted for primary section of both babies. She was also counseled regarding possible need for classical incision which would necessitate late /early term repeat delivery for future pregnancies. Consent was extensively reviewed and then signed. See operative report for details. On POD1 pt was receiving routine pp care. The provider on-call that day received a phone call that Baby B was not doing well and they recommended that she be transferred to [facility]. As she was not yet meeting all postop criteria for discharge yet, she was transferred for continued care to [facility] [address] on POD1 Coding Level of Care Code None Diagnoses labor O60.00
== END 2020-08-01 20:53 | disposition short-term general hospital (02) | DRG 786 ==
LOC: 4S1 17:18 → OPB 17:18 → 4S1 19:29 → 4S2 08-01 01:20